=== PATIENT | male | born 2000 | race African-American/Black ===

== ENCOUNTER 2025-02-17 01:45 | Emergency (ER) | payer MEDICAID ==
[~2025-02-17] VITALS: Ht 175.3 cm; Wt 66.0 kg
[2025-02-17 01:54] VITALS: O2SAT 100
[2025-02-17] MEDS: MORPHINE SULFATE 4 MG/ML INJ (FOR IV/IM USE) IV STA (02:44)
[2025-02-17] MEDS: ONDANSETRON HCL 4MG/2ML INJ IV STA (02:44)
[2025-02-17 02:53] LABS: BASOPHILS % 0.5 % (0.0-2.0); EOSINOPHILS % 1.1 % (0.0-5.0); HEMATOCRIT. 43.4 % (42.0-52.0); HEMOGLOBIN. 14.5 g/dL (14.0-18.0); LYMPHOCYTES % 44.4 % (20.0-50.0); MEAN PLATELET VOLUME 8.0 fl (7.4-10.4); MONOCYTES % 5.9 % (2.0-8.0); NEUTROPHILS % 48.1 % (40.0-76.0); PLATELET 232 x1000/uL (130-400); RED BLOOD CELL COUNT 4.82 mill/uL (4.7-6.1); RED CELL DISTRIBUTION WIDTH 14.7 % (11.6-14.6)
[2025-02-17 03:01] LABS: INR 1.0
[2025-02-17 03:05] LABS: CREATININE 1.0 mg/dL (0.6-1.3); UREA NITROGEN BLOOD 7 mg/dL (9-23)
[2025-02-17] MEDS ORDERED: METH-653 MT (04:48)
[2025-02-17] MEDS ORDERED: IBUP-2029 MT (04:48)
[2025-02-17 05:04] VITALS: BP 137/57; PULSE 57; RESP 13; TEMP 36.6; O2SAT 100
[2025-02-17] MEDS ORDERED: IOHEXOL-300 100 ML BOTTLE ONE (06:24)
== END 2025-02-17 05:20 | disposition home or self-care (01) ==
LOC: ER 01:45
DX: M79.605 Pain in left leg (principal); R51.9 Headache, unspecified; F12.10 Cannabis abuse, uncomplicated; V49.9XXA Car occupant (driver) (passenger) injured in unspecified traffic accident, initial encounter; Y93.89 Activity, other specified; Y92.410 Unspecified street and highway as the place of occurrence of the external cause; Y99.8 Other external cause status
CPT/HCPCS: 99285; 70450; 96374; 71045; 96375; 80048; 85025; 85610; 86850; 86900; 86901; 36415; 72170; 73610; 71260; 72125; 74177; Q9967; J2405; J2270